=== PATIENT | female | born 1965 | race Caucasian/White ===

== ENCOUNTER 2018-01-31 13:54 | Outpatient (CLI) | payer BC, SELFPAY ==
--- NOTE | 2018-01-31 16:10 | RAD ---
RIGHT FOOT THREE VIEWS: HISTORY: Pain. COMPARISON: None. FINDINGS: No acute displaced fracture or malalignment. Lisfranc interval is maintained. Os peroneum are present. Mild hindfoot degenerative changes. Small plantar calcaneal spur. IMPRESSION: Chronic findings. No acute abnormality. POS: [facility]
--- NOTE | 2018-01-31 16:12 | RAD ---
RIGHT KNEE 2 VIEWS: HISTORY: Pain. COMPARISON: None. FINDINGS: No acute displaced fracture or malalignment. No significant joint effusion. Soft tissues are unrema rkable. IMPRESSION: Unremarkable exam. POS: [facility]
== END 2018-01-31 13:55 | disposition home or self-care (01) ==
LOC: SCSRAD 13:54
PROVIDERS: ATTEND Family Medicine
DX: M25.561 Pain in right knee (principal); M79.671 Pain in right foot; M19.071 Primary osteoarthritis, right ankle and foot; M77.31 Calcaneal spur, right foot

== ENCOUNTER 2018-05-03 11:03 | Outpatient (CLI) | payer BC ==
--- NOTE | 2018-05-03 11:34 | RAD ---
TWO VIEW CHEST: Indication: Bronchitis. FINDINGS: There is interstitial prominence of each lung. Cardiac silhouette is normal in size. No significant e ffusion or discrete pneumothorax. There is eventration of the medial right hemidiaphragm. IMPRESSION: Bilateral interstitial prominence could relate to edema versus atypical pneumonia. Recommend follow u p to resolution. POS: [facility]
== END 2018-05-03 11:04 | disposition home or self-care (01) ==
LOC: BICRAD 11:03
PROVIDERS: ATTEND Physician Assistant Medical
DX: J40 Bronchitis, not specified as acute or chronic (principal)
CPT/HCPCS: 71046

== ENCOUNTER 2021-09-05 11:14 | Outpatient (CLI) | payer BC | END 2021-09-05 11:15 | disposition home or self-care (01) | LOC: BICMAMMO 11:14 | PROVIDERS: ATTEND Internal Medicine | DX: Z12.31 Encounter for screening mammogram for malignant neoplasm of breast (principal) | CPT/HCPCS: 77063; 77067 ==

== ENCOUNTER 2022-08-31 08:49 | Outpatient (CLI) | payer BC | END 2022-08-31 08:50 | disposition home or self-care (01) | LOC: BICMAMMO 08:49 | PROVIDERS: ATTEND Internal Medicine | DX: Z12.31 Encounter for screening mammogram for malignant neoplasm of breast (principal) | CPT/HCPCS: 77063; 77067 ==

== ENCOUNTER 2023-04-09 13:17 | Emergency (ER) | payer BC ==
[2023-04-09 14:24] LABS: #Basophils 0.1 thou/uL (0.0-0.2); #Eosinphils 0.4 thou/uL (0.0-0.7); #Monocytes 0.6 thou/uL (0.11-0.59); #Neutrophils 3.1 thou/uL (1.40-6.50); %Basophils 1.7 % (0.0-1.0); %Eosinophils 7.4 % (0.0-10.0); %Lymphocytes 27.9 % (21.0-51.0); %Monocytes 10.3 % (0.0-10.0); %Neutrophils 52.5 % (42.0-75.0); Hematocrit 38.5 % (36.0-47.0); Mean Corpuscular HGB CONC 33.8 g/dL (32.0-36.0); Mean Corpuscular Hemoglobin 30.3 pg (27.0-31.0); Mean Corpuscular Volume 89.7 fl (78.0-98.0); Mean Platelet Volume 9.4 fL (7.4-10.4); Platelet Count 259 10x3/uL (130-400); RBC Distribution Width 12.8 % (11.5-14.5); Red Blood Cell (RBC) Count 4.29 mill/uL (4.20-5.40); White Blood Cell (WBC) Count 5.9 10x3/uL (4.8-10.8)
[2023-04-09 14:55] LABS: ALT (SGPT) 23 U/L (8-55); AST (SGOT) 32 U/L (5-34); Alkaline Phosphatase 129 U/L (40-110); Anion Gap 11 mmol/L (10-20); BUN (Urea Nitrogen) 10 mg/dL (9.8-20.1); Bilirubin, Total 0.7 mg/dL (0.2-1.2); Calc. Creatinine Clearance 0 mL/min (70-130); Calcium 9.2 mg/dL (7.8-10.44); Carbon Dioxide 29 mmol/L (22-29); Chloride 105 mmol/L (98-107); Estimated GFR 86; Globulin 3.3 g/dL (2.4-3.5); Glucose 96 mg/dL (70-105); Potassium 3.8 mmol/L (3.5-5.1); Protein, Total 7.3 g/dL (6.0-8.3); Sodium 141 mmol/L (136-145)
== END 2023-04-09 15:50 | disposition home or self-care (01) ==
LOC: ERS 13:17
DX: K62.5 Hemorrhage of anus and rectum (principal); K64.4 Residual hemorrhoidal skin tags; E78.00 Pure hypercholesterolemia, unspecified; Z90.710 Acquired absence of both cervix and uterus; Z79.899 Other long term (current) drug therapy
CPT/HCPCS: 36416; 74177; 80053; 82274; 85025; 86850; 86900; 86901